=== PATIENT | male | born 1970 | race Caucasian/White ===

== ENCOUNTER 2018-11-03 07:40 | Outpatient (REF) | payer MEDICAID, SELFPAY ==
[2018-11-03 14:16] LABS: Cholesterol 167 mg/dL (50-200); HDL Cholesterol 46 mg/dL (40-60); LDL CHOLESTEROL 94 mg/dL (<100); Triglyceride 224 mg/dL (30-150)
== END 2018-11-03 08:00 ==
LOC: NCHCN 07:40
PROVIDERS: PCP Nurse Practitioner; Visit Provider Nurse Practitioner
DX: E11.9 Type 2 diabetes mellitus without complications (principal); I10 Essential (primary) hypertension; E66.9 Obesity, unspecified
CPT/HCPCS: 80061; 83721

== ENCOUNTER 2019-04-16 09:02 | Outpatient (REF) | payer MEDICAID, SELFPAY ==
[2019-04-16 20:22] LABS: ALT 96 U/L (12-78); AST 34 U/L (15-37); Alkaline Phosphatase 94 U/L (46-116); Anion Gap 12.3 mmol/L (3-11); BUN 18 mg/dL (7-18); Bilirubin, Total 0.5 mg/dL (0.2-1.0); CO2 24.7 mmol/L (21.0-32.0); CREATININE 0.84 mg/dL (0.70-1.30); Chloride 102 mmol/L (98-107); Cholesterol 160 mg/dL (50-200); Glucose 153 mg/dL (70-100); HDL Cholesterol 40 mg/dL (40-60); LDL CHOLESTEROL 88 mg/dL (<100); Potassium 4.2 mmol/L (3.5-5.1); Sodium 139 mmol/L (136-145); Total Protein 7.2 g/dL (6.4-8.2); Triglyceride 188 mg/dL (30-150)
[2019-04-16 20:25] LABS: COMMENT (LAB VIEW ONLY) 88.44 mg/dL; Microalb ug/mg Crea 3.5 ug/mg Cr
== END 2019-04-16 09:22 ==
LOC: NCHCN 09:02
PROVIDERS: PCP Nurse Practitioner; Visit Provider Nurse Practitioner
DX: E11.9 Type 2 diabetes mellitus without complications (principal); I10 Essential (primary) hypertension
CPT/HCPCS: 80053; 80061; 83721; 82043; 82570

== ENCOUNTER 2020-05-19 09:08 | Outpatient (REF) | payer MEDICAID, SELFPAY ==
[2020-05-19 19:15] LABS: ALT 90 U/L (16-63); AST 27 U/L (15-37); Albumin 4.2 g/dL (3.4-5.0); Alkaline Phosphatase 111 U/L (46-116); Anion Gap 10.8 mmol/L (3-11); BUN 15 mg/dL (7-18); Bilirubin, Total 0.4 mg/dL (0.2-1.0); CO2 25.2 mmol/L (21.0-32.0); CREATININE 0.81 mg/dL (0.70-1.30); Calcium 9.1 mg/dL (8.5-10.1); Calculated LDL 101 mg/dL (<100); Chloride 106 mmol/L (98-107); Cholesterol 176 mg/dL (<200); HDL Cholesterol 52 mg/dL (40-60); Sodium 142 mmol/L (136-145); Total Protein 7.2 g/dL (6.4-8.2); Triglyceride 115 mg/dL (<150)
[2020-05-19 19:20] LABS: Glucose 204 mg/dL (74-106)
== END 2020-05-19 09:28 ==
LOC: NCHCN 09:08
PROVIDERS: PCP Nurse Practitioner; Visit Provider Nurse Practitioner
DX: E11.9 Type 2 diabetes mellitus without complications (principal); I10 Essential (primary) hypertension
CPT/HCPCS: 80053; 80061

== ENCOUNTER 2020-08-17 08:55 | Outpatient (REF) | payer MEDICAID, SELFPAY ==
[2020-08-17 20:08] LABS: ALT 87 U/L (16-63); AST 31 U/L (15-37); Albumin 4.3 g/dL (3.4-5.0); Alkaline Phosphatase 90 U/L (46-116); Bilirubin, Total 0.7 mg/dL (0.2-1.0); Total Protein 7.3 g/dL (6.4-8.2)
[2020-08-17 20:40] LABS: Bilirubin, Direct 0.18 mg/dL (0.00-0.20)
[2020-08-17 21:36] LABS: COMMENT (LAB VIEW ONLY) 51.36 mg/dL; Microalb ug/mg Crea 10.5 ug/mg Cr
[2020-08-19 12:25] LABS: Hepatitis C Ab w Rflx HCV PCR Negative (Negative)
== END 2020-08-17 09:15 ==
LOC: NCHCN 08:55
PROVIDERS: PCP Nurse Practitioner; Visit Provider Nurse Practitioner
DX: E11.9 Type 2 diabetes mellitus without complications (principal); R79.89 Other specified abnormal findings of blood chemistry; Z11.59 Encounter for screening for other viral diseases
CPT/HCPCS: 80076; 86803; 82043; 82570

== ENCOUNTER 2021-08-31 18:56 | Outpatient (REF) | payer MEDICAID, SELFPAY ==
[2021-08-31 16:17] LABS: ALT 118 U/L (16-63); AST 41 U/L (15-37); Albumin 4.4 g/dL (3.4-5.0); Alkaline Phosphatase 102 U/L (46-116); Anion Gap 9.7 mmol/L (3-11); BUN 17 mg/dL (7-18); Bilirubin, Total 0.6 mg/dL (0.2-1.0); CO2 25.3 mmol/L (21.0-32.0); CREATININE 0.9 mg/dL (0.70-1.30); Calcium 9.3 mg/dL (8.5-10.1); Calculated LDL 111 mg/dL (<100); Chloride 103 mmol/L (98-107); Cholesterol 197 mg/dL (<200); Glucose 204 mg/dL (74-106); HDL Cholesterol 49 mg/dL (40-60); Potassium 4.5 mmol/L (3.5-5.1); Sodium 138 mmol/L (136-145); Total Protein 7.6 g/dL (6.4-8.2); Triglyceride 186 mg/dL (<150)
== END 2021-08-31 18:57 | disposition home or self-care (01) ==
LOC: LBN 18:56
PROVIDERS: PCP Nurse Practitioner; Visit Provider Nurse Practitioner
DX: E11.9 Type 2 diabetes mellitus without complications (principal); R79.89 Other specified abnormal findings of blood chemistry; I10 Essential (primary) hypertension
CPT/HCPCS: 80053; 80061

== ENCOUNTER 2021-10-05 08:11 | Outpatient (REF) | payer MEDICAID, SELFPAY ==
[2021-10-06 02:11] LABS: COMMENT (LAB VIEW ONLY) 21.53 mg/dL; Microalb ug/mg Crea 12.5 ug/mg Cr
== END 2021-10-05 08:12 | disposition home or self-care (01) ==
LOC: NCHCN 08:11
PROVIDERS: PCP Nurse Practitioner; Visit Provider Nurse Practitioner
DX: E11.9 Type 2 diabetes mellitus without complications (principal)
CPT/HCPCS: 82043; 82570

== ENCOUNTER 2022-03-20 16:23 | Outpatient (REF) | payer MEDICAID, SELFPAY ==
[2022-03-20 18:16] LABS: Abs Immature Grans 0.04 10^3/uL (0.0-0.06); Absolute Basophil Count 0.04 10^3/uL (0.0-0.2); Absolute Eosinophil Count 0.17 10^3/uL (0.0-0.7); Absolute Monocyte Count 0.59 10^3/uL (0.1-0.8); Absolute Neutrophil Count 3.47 10^3/uL (1.2-6.7); Basophils % 0.7; Eosinophils % 2.8; HCT 49.6 % (40.0-50.0); HGB 16.6 g/dL (13.5-17.5); Immature Grans % 0.7; Lymphocytes % 28.3; MCH 28.7 pg (27.0-33.0); MCHC 33.5 % (32.0-36.0); MCV 85.7 fL (80-95); MPV 10.7 fL (8.0-11.0); Monocytes % 9.8; Neutrophils % 57.7; Platelet Count 170 10^3/uL (130-400); RBC 5.79 10^6/uL (4.36-5.78); RDW 13.1 % (11.8-14.1); WBC 6.01 10^3/uL (4.4-10.8)
[2022-03-20 18:34] LABS: ALT 117 U/L (16-63); AST 62 U/L (15-37); Albumin 4.3 g/dL (3.4-5.0); Alkaline Phosphatase 107 U/L (46-116); Anion Gap 10.5 mmol/L (3-11); BUN 17 mg/dL (7-18); Bilirubin, Total 0.6 mg/dL (0.2-1.0); CO2 23.5 mmol/L (21.0-32.0); CREATININE 0.4 mg/dL (0.70-1.30); Calcium 9.1 mg/dL (8.5-10.1); Chloride 103 mmol/L (98-107); Glucose 143 mg/dL (74-106); Potassium 5.6 mmol/L (3.5-5.1); Sodium 137 mmol/L (136-145); TSH 1.89 uIU/mL (0.36-3.74); Total Protein 7.8 g/dL (6.4-8.2)
[2022-03-20 19:05] LABS: Hemoglobin A1C 9.3 % (<5.7)
== END 2022-03-20 16:24 | disposition home or self-care (01) ==
LOC: NCHCN 16:23
PROVIDERS: PCP Nurse Practitioner; Visit Provider Nurse Practitioner Family
DX: E11.9 Type 2 diabetes mellitus without complications (principal); R79.89 Other specified abnormal findings of blood chemistry; I10 Essential (primary) hypertension; G47.33 Obstructive sleep apnea (adult) (pediatric)
CPT/HCPCS: 80053; 83036; 84443; 85025

== ENCOUNTER 2022-09-12 07:58 | Outpatient (REF) | payer MEDICAID, SELFPAY ==
--- OUTSIDE RECORDS SUMMARY | 2022-09-12 07:59 | XMS_ITS | Continuity of Care Document ---
:1970 Author Organization [facility] Address [address] [place] [address] Problems Condition ICD9 code ICD10 code SNOMED code Start Date End Date Status Encounter for screening Z13.228 for other metabolic disorders Results Test Value / Unit Interpretation Reference Range Comp. Metabolic Panel (14)[[id number]]?Collected: 08/20/2022 07:00 AM?Specimen Received: 05:00 AM? Glucose [745265] 114 mg/dL H 65-99 mg/dL Effective August 20, 2022 Glucose r eference interval will be changing to: 70 - 99 BUN [691030] 17 mg/dL Normal 6-24 mg/dL Creatinine [377239] 0.76 mg/dL Normal 0.76-1.27 mg /dL eGFR [556157] 109 mL/min/1.73 Normal >59 mL/min/1.73 BUN/Creatinine Ratio [804738] 22 H 9- 20 Sodium [219069] 139 mmol/L Normal 134-144 mmol/L Potassium [958398] 4.2 mmol/L Normal 3.5-5.2 mmol/ L Chloride [499217] 105 mmol/L Normal 96-106 mmol/L Carbon Dioxide, Total [187990] 21 mmol/L Normal 2 0-29 mmol/L Calcium [686605] 9.2 mg/dL Normal 8.7-10.2 mg/dL Protein, Total [375833] 6.9 g/dL Normal 6.0-8.5 g/dL Albumin [163849] 4.5 g/dL Normal 3.8-4.9 g/dL Globulin, Total [091499] 2.4 g/dL Normal 1.5-4.5 g/dL A/G Ratio [172734] 1.9 Normal 1.2-2.2 Bilirubin, Total [068441] 0.4 mg/dL Normal 0.0-1. 2 mg/dL Alkaline Phosphatase [273223] 99 IU/L Normal 44 -121 IU/L AST (SGOT) [235019] 20 IU/L Normal 0-40 IU/L ALT (SGPT) [945736] 34 IU/L Normal 0-44 IU/L Lipid Panel[[id number]]?Collected: 08/20/2022 07:00 AM?Specimen Received: 08/20/2022 05:00 AM? Cholesterol, Total [536056] 182 mg/dL Normal 100- 199 mg/dL Triglycerides [476413] 162 mg/dL H 0-149 mg/ dL HDL Cholesterol [739513] 49 mg/dL Normal >39 mg/ dL VLDL Cholesterol Jeffery [870788] 28 mg/dL Normal 5- 40 mg/dL LDL Chol Calc (NIH) [938070] 105 mg/dL H 0-9 9 mg/dL Albumin/Creatinine Ratio,Urine[730549]?Collected: 08/20/2022 07:00 AM?Specimen Received: 05:00 AM? Creatinine, Urine [189938] 108.8 mg/dL Normal Not E stab. mg/dL Albumin, Urine [336068] 3.0 ug/mL Normal Not Esta b. ug/mL Alb/Creat Ratio [028641] 3 mg/g creat Normal 0-29 mg /g creat Normal: 0 - 29 Moderately increased: 30 - 300 Severely increased: >300 Hemoglobin A1c[786060]?Collecte d: 08/20/2022 07:00 AM?Specimen Received: 08/20/2022 05:00 AM? Hemoglobin A1c [604766] 5.9 % H 4.8-5.6 % . Prediabetes: 5.7 - 6.4 Diabetes: >6.4 Glycemic control for adults with diabetes: 7.0 Please note[[id number]]?Collected: 08/20/2022 07:00 AM?Specimen Received: 08/20/2022 05:00 AM? Please note [[id number]] Normal The date and/or time of collection was n ot indicated on therequisition as required by state and federal law. The date ofreceip t of the specimen was used as the collection date if notsupplied. Allergies, adverse reactions, alerts No known allergies and adverse reactions Medications No administered medications reported Vital Signs No vital signs reported Social History No smoking Hx information available
[2022-09-12 14:58] LABS: Abs Immature Grans 0.02 10^3/uL (0.0-0.06); Absolute Basophil Count 0.03 10^3/uL (0.0-0.2); Absolute Eosinophil Count 0.16 10^3/uL (0.0-0.7); Absolute Lymphocyte Count 2.04 10^3/uL (1.2-3.4); Absolute Neutrophil Count 3.37 10^3/uL (1.2-6.7); Basophils % 0.5; Eosinophils % 2.6; HCT 49.4 % (40.0-50.0); Immature Grans % 0.3; Lymphocytes % 33.3; MCH 27.3 pg (27.0-33.0); MCHC 32.4 % (32.0-36.0); MCV 84 fL (80-95); MPV 10.3 fL (8.0-11.0); Monocytes % 8.2; Neutrophils % 55.1; Platelet Count 186 10^3/uL (130-400); RBC 5.86 10^6/uL (4.36-5.78); RDW 13.3 % (11.8-14.1); RDW-SD 41.4 fL; WBC 6.12 10^3/uL (4.4-10.8)
[2022-09-12 15:47] LABS: ALT 50 U/L (16-63); AST 22 U/L (15-37); Alkaline Phosphatase 104 U/L (46-116); BUN 18 mg/dL (7-18); Bilirubin, Total 0.4 mg/dL (0.2-1.0); CREATININE 0.7 mg/dL (0.70-1.30); Calculated LDL 116 mg/dL (<100); Chloride 104 mmol/L (98-107); Cholesterol 185 mg/dL (<200); Estimated GFR 111.56 (mL/min/1.73m2); Glucose 136 mg/dL (74-106); HDL Cholesterol 55 mg/dL (40-60); Potassium 4.5 mmol/L (3.5-5.1); Sodium 139 mmol/L (136-145); Total Protein 7.8 g/dL (6.4-8.2); Triglyceride 74 mg/dL (<150)
== END 2022-09-12 07:59 | disposition home or self-care (01) ==
LOC: NCHCN 07:58
PROVIDERS: PCP Nurse Practitioner; Visit Provider Nurse Practitioner Family
DX: I10 Essential (primary) hypertension (principal); E11.9 Type 2 diabetes mellitus without complications
CPT/HCPCS: 80053; 80061; 85025

== ENCOUNTER 2022-09-18 08:13 | Outpatient (REF) | payer MEDICAID, SELFPAY ==
[2022-09-18 19:05] LABS: COMMENT (LAB VIEW ONLY) 123.46 mg/dL
== END 2022-09-18 08:14 | disposition home or self-care (01) ==
LOC: NCHCN 08:13
PROVIDERS: PCP Nurse Practitioner; Visit Provider Nurse Practitioner Family
DX: E11.9 Type 2 diabetes mellitus without complications (principal)
CPT/HCPCS: 82043; 82570

== ENCOUNTER 2023-02-15 01:59 | Outpatient (CLI) | payer MEDICAID, SELFPAY ==
[2023-02-15 12:48] LABS: Anion Gap 7.8 mmol/L (3-11); BUN 17 mg/dL (7-18); CO2 27.2 mmol/L (21.0-32.0); CREATININE 0.8 mg/dL (0.70-1.30); Calcium 8.9 mg/dL (8.5-10.1); Chloride 107 mmol/L (98-107); Estimated GFR 107.15 (mL/min/1.73m2); Glucose 169 mg/dL (74-106); Sodium 142 mmol/L (136-145)
[2023-02-15 15:08] LABS: Calculated LDL 108 mg/dL (<100); Cholesterol 178 mg/dL (<200); HDL Cholesterol 58 mg/dL (40-60); Triglyceride 60 mg/dL (<150)
[2023-02-15 23:07] LABS: PSA, Screening 0.4 ng/mL (<=3.5)
== END 2023-02-15 02:00 | disposition home or self-care (01) ==
LOC: LOS 02:00
PROVIDERS: PCP Nurse Practitioner Family; Visit Provider Nurse Practitioner Family
DX: E78.5 Hyperlipidemia, unspecified (principal); Z12.5 Encounter for screening for malignant neoplasm of prostate; R73.03 Prediabetes; I10 Essential (primary) hypertension
CPT/HCPCS: 36415; 80048; 80061; 84153

== ENCOUNTER 2023-03-01 02:09 | Outpatient (CLI) | payer MEDICAID, SELFPAY ==
[2023-03-01 12:44] LABS: Hemoglobin A1C 6.4 % (<5.7)
== END 2023-03-01 02:10 | disposition home or self-care (01) ==
LOC: LOS 02:12
PROVIDERS: PCP Nurse Practitioner Family; Visit Provider Nurse Practitioner Family
DX: R73.03 Prediabetes (principal)
CPT/HCPCS: 36415; 83036

== ENCOUNTER 2023-10-10 10:26 | Day surgery (SDC) | payer MEDICAID, SELFPAY ==
--- NOTE | 2023-10-09 14:24 | W.PM.DSUDISC ---
Date of service: 10/10/23 Time of Service: 13:20 Discharge Plan Disposition Patient Disposition: Home Condition: Good Discharge Details Reason For Visit: Screening colonoscopy Attending Provider: Claude Burrows Primary Care Provider: Susan Salguero Home Meds and New Rx's Prescriptions: Discontinued bisacodyl [Dulcolax (bisacodyl)] 5 mg tablet,delayed release (DR/EC) 5 mg PO ONCE Qty: 4 0RF Rx Instructions: Take per colonoscopy instructions provided by ordering providers office polyethylene glycol 3350 17 gram/dose powder 17 g PO ONCE Qty: 238 0RF Rx Instructions: Take per colonoscopy instructions provided by ordering providers office Discharge Instructions Instructions: Colorectal Polyps (GEN) Additional Instructions: JulioC ésar, we were able to complete your colonoscopy today without any difficulty. I did find a total of 4 polyps. All were quite small, and I removed them all completely. Once I have the results of the polyp analysis, I will be in touch with my recommendations for your next colonoscopy. 1. If tolerated, consume a soft, low fiber diet for 1-2 days. 2[address] Do not drive, drink alcohol, operate machinery, make critical decisions, or do activities that require coordination or balance for 24 hours. 3. Because air was put into your colon during the procedure, expelling air from your rectum (passing gas or farting) is normal. 4. You may not have a bowel movement for 1-3 days because of the colonoscopy prep. This is normal. 5. Go directly to the emergency room if you notice any of the following: Develop chills (warm to touch), or if you have a thermometer and your temperature is above 101 Difficulty breathing or difficultly swallowing Persistent vomiting Severe abdominal pain, other than gas cramps Severe chest pain Black, tarry stools Any bleeding ? exceeding one tablespoon 6. Call your physician if the site where your intravenous was started becomes red, swollen, painful, and warm to touch. 7. Your physician has reviewed your pre-procedure medications. Please continue to take those medications as previously ordered. You will be given specific information/education regarding any changes to your medications before leaving. Activity:: Activity as Tolerated Diet:: As Tolerated Discharge Orders Discharge Orders: Discharge Order (Routine); Ordered 10/09/23 Ordered By: Claude Burrows DS: Diagnosis Discharge Diagnosis (1) Screening for colorectal cancer: Status: Acute Asessment and Plan: Follow-up on polypectomy results
--- NOTE | 2023-10-09 14:25 | W.COLOREPORT ---
Date of service: 10/10/23 Time of Service: 13:25 Colonoscopy Report Date of procedure: 10/10/23 Pre-op diagnosis general: Screening colonoscopy Post-op diagnosis procedure note: other (Colorectal polyps) Procedure: Colonoscopy with polypectomy Surgeon: Claude Burrows Anesthesia Type: General:No Airway Estimated blood loss (mL): 10 Pathology: other (0.25 cm polyp at 80 cm, 0.25 cm polyp at 65 cm x 2, 0.25 cm polyp at 25 cm) Complications: None Disposition: same day Indications: Julio César is a 53-year-old male with a history of adenomatous polyps who needs his next screening colonoscopy Prep: Miralax/Dulcolax Procedure Start Time: 12:50 Procedure End Time: 13:10 Retraction Time: 11 Findings: 0.25 cm polyp at 80 cm, 0.25 cm polyp at 65 cm x 2, 0.25 cm polyp at 25 cm Procedure Description: After the induction of monitored anesthetic care, and with the patient in left lateral decubitus position, I began by performing an external anorectal exam.? Perineum and skin were normal, as was the anal verge.? There was no evidence of external hemorrhoids.? Next, I performed a digital rectal exam.? I did not appreciate any abnormal findings.? Next, I advanced a colonoscope into the rectal vault.? I performed retroflexion.? This was normal.? Using insufflation, I then advanced the colonoscope beyond the rectal folds and into the sigmoid colon before advancing towards the cecum.? The scope was noted to be in the cecum by identification of the ileocecal valve and appendiceal orifice.?Around 80 cm from the anal verge I identified a 0.25 cm sessile cold forcep polypectomy polyp. ?It appeared in character. ?I was able to remove this with a . ?I examined the site, and there was minimal bleeding. ?Once this was completed, I continued to withdraw the scope and examine the remainder of the colonic mucosa. I then began withdrawing the colonoscope using repeated irrigation as necessary for full evaluation of the colonic mucosa. Similarly, I found 0.25 cm polyps at 65 cm x 2. These were both sessile, and I removed both of these with cold forceps and no significant bleeding. Finally, I found 1 another 0.25 cm polyp around 25 cm from the anus. I removed this with cold forceps in a similar fashion to all the others. Once the scope was withdrawn to the level of the rectum, great care was taken to examine portions of the rectal folds.? Finally, the scope was withdrawn and the patient was brought to the same-day surgery recovery unit as the anesthetic wore off. ?The findings and instructions were shared with the patient prior to discharge. Clinton Bowel Prep Clinton Bowel Prep Right Colon: 3 Left Colon: 3 Transverse Colon: 3 Total Score: 9
[2023-10-10 11:39] VITALS: BP 140/81; PULSE 75; RESP 16; TEMP 36.8; O2SAT 97
[2023-10-10] MEDS: Lactated Ringers 1,000 ML 80 ML IV (12:03)
--- NOTE | 2023-10-10 12:38 | W.ANESPRE ---
General Info Date of Service Date Performed: 10/10/23 Height: 5 ft 7 in Weight: 150.6 kg Body Mass Index (BMI): 52.0 Surgical Procedure: Operation Date: 10/10/23 12:05 Proposed Procedure Side Surgeon p Melo Burrows MD Meds Allergies and Home Medications Allergies Allergy/AdvReac Type Severity Reaction Status Date / Time naproxen AdvReac Intermediate blood in Verified 10/10/23 11:45 stool Current Visit Medications: Current Medications Generic Name Dose Route Start Last Admin Trade Name Freq PRN Reason Stop Dose Admin Hyoscyamine Sulfate 0.125 mg 10/09/23 14:26 Hyoscyamine 0.125 Mg Sl/Oral/Chew SL 11/08/23 14:25 DIRECTED PRN Ringer's Solution 1,000 mls @ 80 mls/hr 10/10/23 06:00 10/10/23 12:03 IV 10/24/23 23:59 80 mls/hr INFUSION MIHAELA Administration IV Miscellaneous Supplies 1 each 10/10/23 06:00 Iv Access IV 10/24/23 23:59 DIRECTED MIHAELA Ondansetron HCl 4 mg 10/09/23 14:26 Ondansetron 4 Mg/2 Ml Vial IVP 11/08/23 14:25 Q4H PRN PRN Nausea / Vomiting Sodium Chloride 0 ml 10/10/23 06:00 Normal Saline Flush 10 Ml Syr IV 10/24/23 23:59 PRN PRN Sodium Chloride 0 ml 10/10/23 06:00 Normal Saline 10 Ml Vial IJ 10/24/23 23:59 DIRECTED PRN Sterile Water 0 ml 10/10/23 06:00 Water,Injection,Sterile 10 Ml Vial IJ 10/24/23 23:59 DIRECTED PRN PFSH Active Problems Active Problems: Problem Status Onset Code Screening for colorectal cancer Z12.11, Z12.12 Hx of adenomatous colonic polyps Z86.010 Morbid obesity with BMI of 50.0-59.9, adult E66.01, Z68.43 Prediabetes R73.03 Hyperlipidemia E78.5 CARIN (obstructive sleep apnea) G47.33 Insomnia G47.00 Onychomycosis B35.1 Medical History Medical History Alcohol abuse, in remission Erectile disorder Peripheral neuropathy History of tobacco use Type 2 diabetes mellitus with diabetic neuropathy Hypertension Depression Tobacco Smoking/Tobacco Use Status: Former Tobacco Use Passive smoking exposure: Yes Second hand exposure: Yes Alcohol Alcohol Intake: former Year quit: 2020 Substance Use Substance use: Never Substance use type: former substance user Vital Signs and Lab Results Vital Signs Most Recent Vital Signs in EMR: Most Recent Vital Signs Temp Pulse Resp BP Pulse Ox 36.8 C 75 16 140/81 97 10/10/23 11:39 10/10/23 11:39 10/10/23 11:39 10/10/23 11:39 10/10/23 11:39 Point of Care Results Point of Care Results: Finger Stick Blood Glucose 122 10/10/23 11:35 Lab Results Blood Type / Crossmatch: No Data to Display Complete Blood Count: No Data to Display Complete Metabolic Panel: No Data to Display Liver Function Panel: No Data to Display Coagulation Panel: No Data to Display Cardiac Panel: No Data to Display Arterial Blood Gas: No Data to Display Venous Blood Gas: No Data to Display Pancreas Panel: No Data to Display Thyroid Panel: No Data to Display Infectious Disease: No Data to Display Blood Cultures: No Data to Display Toxicology Panel: No Data to Display Anesthesia Assessment and Plan Anesthesia History Personal History: No History of Anesthesia Complications Family History: No Family History of Anesthesia Complications Exercise Tolerance Exercise Tolerance: Metabolic Equivalents>4 Pertinent Negatives Pertinent Negatives: No Symptoms of GERD, No Major Cardiovascular Symptoms or Complaints and No Major Pulmonary Symptoms or Complaints Cardiac & Pulmonary Exam Cardiac Exam: Normal S1/S2 Heart Sounds Pulmonary Exam: Clear Bilateral Breath Sounds Implantable Cardiac Device Does patient have a Pacemaker or an ICD?: No Airway Exam Known Difficult Airway: No Mallampati Class: 2 Mouth Opening: Normal (> 3cm) Thyromental Distance: Greater than 3 cm Neck Range of Motion: Full ROM Neck Circumference: Thick Teeth Condition: Normal Dentition ASA Classification ASA Score: ASA 3 Emergency Case?: No NPO Status NPO Status: NPO Clears >2 hours, Solids >8 hours Anesthesia Plan Resuscitation Status: Full Code Anesthesia Technique: General Anesthesia Airway Planned: Natural Airway Monitors Used: Standard Monitors
[2023-10-10 12:39] VITALS: BMI 52.0
--- NOTE | 2023-10-10 13:00 | BOWEL_PTH ---
PATIENT: Julio César Kaiser LOC: [facility] U#:[id number] AGE/SX: 53/M ROOM: RE10/10/[address]: Claude Burrows MD : 1970 BED: DIS: 10/10/2023 SPEC #: [id number] RECD: 10/11/23 10:47 STATUS: KEEGAN REQ #: [id number] APOORVA: 10/10/23 13:[address]: Claude Burrows DEPT: Surgical Specimen RECD BY: Cely Yao ENTERED: 10/11/23 10:48 SP TYPE: Bowel OTHR DR: Susan Salguero, MALLY Tissues: 1 - BIOPSY BOWEL 2 - BIOPSY BOWEL 3 - BIOPSY BOWEL 4 - BIOPSY BOWEL Procedures: GROSS AND MICRO LEVEL 4 Comments: [id number]
[2023-10-10 13:50] VITALS: BP 137/71; PULSE 80; RESP 16; TEMP 36.6; O2SAT 97
--- NOTE | 2023-10-10 13:56 | W.ANESPOSTOP ---
Postoperative Evaluation Date, Time and Location Date Performed: 10/10/23 Time Performed: 13:35 Patient Location: Day Surgery Unit Vital Signs Most Recent Imported Vital Signs: Most Recent Vital Signs Temp Pulse Resp BP Pulse Ox 36.6 C 80 16 137/71 97 10/10/23 13:50 10/10/23 13:50 10/10/23 13:50 10/10/23 13:50 10/10/23 13:50 Assessment Mental Status: Awake (Alert & Oriented to Patient Baseline) Airway and Respiratory Function: Patent airway with normal (patient baseline) respiratory exam Cardiovascular Function: Hemodynamically Stable Hydration Status: Adequately Hydrated Nausea & Vomiting: No Nausea or Vomiting Pain: Pt. Denies Any Pain Peripheral Nerve Block: Patient did not receive a nerve block
[2023-10-10 14:11] VITALS: BP 135/103; PULSE 93; RESP 18; TEMP 36.6; O2SAT 96
== END 2023-10-10 14:00 | disposition home or self-care (01) ==
LOC: SUR 10:26
PROVIDERS: PCP Nurse Practitioner Family; Visit Provider Surgery
PROC: 0DJD8ZZ Inspection of Lower Intestinal Tract, Via Natural or Artificial Opening Endoscopic (ICD-10-PCS; CPT 45378; principal; 2023-10-10 12:00)
DX: Z12.11 Encounter for screening for malignant neoplasm of colon (principal); D12.4 Benign neoplasm of descending colon; Z86.010 Personal history of colon polyps; E66.01 Morbid (severe) obesity due to excess calories; Z68.43 Body mass index [BMI] 50.0-59.9, adult; R73.03 Prediabetes
CPT/HCPCS: 45380; 88305; J2250

== ENCOUNTER 2024-03-05 05:29 | Outpatient (CLI) | payer MEDICAID, SELFPAY ==
[2024-03-05 12:34] LABS: Anion Gap 9.8 mmol/L (3-11); BUN 16 mg/dL (7-18); CO2 26.2 mmol/L (21.0-32.0); CREATININE 0.8 mg/dL (0.70-1.30); Calculated LDL 98 mg/dL (<100); Chloride 107 mmol/L (98-107); Cholesterol 159 mg/dL (<200); Estimated GFR 106.48 (mL/min/1.73m2); Glucose 130 mg/dL (74-106); HDL Cholesterol 47 mg/dL (40-60); Potassium 4.1 mmol/L (3.5-5.1); Sodium 143 mmol/L (136-145); Triglyceride 70 mg/dL (<150)
[2024-03-05 12:42] LABS: Hemoglobin A1C 6.9 % (<5.7)
== END 2024-03-05 05:30 | disposition home or self-care (01) ==
LOC: LOS 05:29
PROVIDERS: PCP Nurse Practitioner Family; Visit Provider Nurse Practitioner Family
DX: Z00.00 Encounter for general adult medical examination without abnormal findings (principal); E11.40 Type 2 diabetes mellitus with diabetic neuropathy, unspecified
CPT/HCPCS: 36415; 80048; 80061; 83036

== ENCOUNTER 2024-06-08 18:03 | Outpatient (REF) | payer MEDICAID, SELFPAY ==
[2024-06-08 12:44] LABS: Microalb ug/mg Crea 4.4 ug/mg Cr
== END 2024-06-08 18:04 | disposition home or self-care (01) ==
LOC: LBN 18:03
PROVIDERS: PCP Nurse Practitioner Family; Visit Provider Nurse Practitioner Family
DX: E11.9 Type 2 diabetes mellitus without complications (principal)
CPT/HCPCS: 82043; 82570

== ENCOUNTER → 2024-06-10 01:52 | Outpatient (CLI) | payer MEDICAID, SELFPAY ==
--- NOTE | 2024-06-10 10:13 | DI.RAD_ITS ---
Exam(s) XR SHOULDER LT COMPLETE 2+V EXAM: XR SHOULDER LT COMPLETE 2+V CLINICAL HISTORY: left shoulder pain,m25.512. TECHNIQUE: 2D digital imaging was performed. COMPARISON: No exams were available for comparison FINDINGS: Five views. No evidence of fracture nor dislocation or abnormal soft tissue calcifications. The subacromial spac e is not diminished. There are some degenerative changes in the glenohumeral joint. There are multiple degenerative subar ticular cysts in the osseous glenoid. There is also a subarticular cyst measuring 9 x 8 mm in the hu meral head. There is a small osteophyte on the inferior articular surface of the humeral head also n oted. There also a few degenerative subarticular cysts in the region of the greater tuberosity. Mil d degenerative changes in the AC joint. Clavicle otherwise unremarkable. No other scapular findings . IMPRESSION: Degenerative changes in the glenohumeral joint, as described above. DATA REPOSITORY: RADIATION DOSE DELIVERED:
== END ==
PROVIDERS: PCP Nurse Practitioner Family; Visit Provider Nurse Practitioner Family
DX: M25.512 Pain in left shoulder (principal); M19.012 Primary osteoarthritis, left shoulder
CPT/HCPCS: 73030

== ENCOUNTER 2024-07-09 05:09 | Outpatient (CLI) | payer MEDICAID, SELFPAY ==
[2024-07-09 12:49] LABS: Abs Immature Grans 0.02 10^3/uL (0.0-0.06); Absolute Basophil Count 0.03 10^3/uL (0.0-0.2); Absolute Eosinophil Count 0.15 10^3/uL (0.0-0.7); Absolute Lymphocyte Count 1.82 10^3/uL (1.2-3.4); Absolute Monocyte Count 0.42 10^3/uL (0.1-0.8); Absolute Neutrophil Count 3.02 10^3/uL (1.2-6.7); Basophils % 0.5 %; Eosinophils % 2.7 %; HCT 46.4 % (40.0-50.0); HGB 15.2 g/dL (13.5-17.5); Immature Grans % 0.4 %; Lymphocytes % 33.3 %; MCH 26.8 pg (27.0-33.0); MCHC 32.8 % (32.0-36.0); MCV 82 fL (80-95); MPV 9.4 fL (8.0-11.0); Monocytes % 7.7 %; Neutrophils % 55.4 %; Platelet Count 183 10^3/uL (130-400); RBC 5.67 10^6/uL (4.36-5.78); RDW 14.6 % (11.8-14.1); RDW-SD 43.7 fL; WBC 5.46 10^3/uL (4.4-10.8)
[2024-07-09 19:36] LABS: Ferritin 117 ng/mL (26-388); TSH (W/Ref FT4) 1.91 uIU/mL (0.36-3.74)
== END 2024-07-09 05:10 | disposition home or self-care (01) ==
LOC: LOS 05:10
PROVIDERS: PCP Nurse Practitioner Family; Visit Provider Nurse Practitioner Family
DX: G47.00 Insomnia, unspecified (principal)
CPT/HCPCS: 36415; 82728; 84443; 85025

== ENCOUNTER 2024-08-13 03:11 | Outpatient (CLI) | payer MEDICAID, SELFPAY ==
[2024-08-15 08:59] LABS: HIV-1/2 Ag & Ab Screen Negative (Negative)
[2024-08-17 10:49] LABS: HBs Antibody, Quant <3.1 mIU/mL (See Note); Hep B Surface Ab Negative (See Note); Hepatitis B Core Antibody Negative (Negative); Hepatitis B Surface Antigen Negative (Negative)
== END 2024-08-13 03:12 | disposition home or self-care (01) ==
LOC: LBO 03:11
PROVIDERS: PCP Nurse Practitioner Family; Visit Provider Nurse Practitioner Family
DX: Z11.4 Encounter for screening for human immunodeficiency virus [HIV] (principal); E11.40 Type 2 diabetes mellitus with diabetic neuropathy, unspecified; Z11.59 Encounter for screening for other viral diseases
CPT/HCPCS: 36415; 86704; 86706; 87340; 87389; 83036

== ENCOUNTER 2025-02-18 10:07 | Emergency (ER) | payer OTHER, SELFPAY ==
[2025-02-18 10:15] VITALS: BP 192/100; PULSE 108; RESP 24; TEMP 36.9; O2SAT 96
--- NOTE | 2025-02-18 10:15 | DI.RAD_ITS ---
Exam(s) XR ANKLE RT COMPLETE EXAM: XR ANKLE RT COMPLETE CLINICAL HISTORY: Right ankle pain. TECHNIQUE: 2D digital imaging was performed. COMPARISON: No exams were available for comparison FINDINGS: 3 views No evidence of acute fracture nor widening the ankle mortise. There are significant degenerative changes in the tibiotalar joint including joint space narrowing an d degenerative subarticular cysts in the lateral aspect of the joint. There is also a bony excrescen ce off the dorsal aspect of the talar neck. Incidentally noted is a prominent inferior calcaneal spu r. 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 DATA REPOSITORY: RADIATION DOSE DELIVERED:
--- NOTE | 2025-02-18 11:01 | W.ED.GENAD ---
Discharge Plan Disposition Patient Disposition: Home Discharge Details Clinical Impression: Right ankle sprain, Blood pressure elevated without history of HTN Primary Care Provider: Susan Salguero ED Provider: Mario Olmos Home Meds and New Rx's Prescriptions: Continued trazodone 100 mg tablet 100 mg PO QHS Qty: 90 3RF Discharge Instructions Instructions: Ankle Sprain ED Additional Instructions: You are seen in the emergency department for your ankle pain. Your x-ray showed no sign of any fractures. As we discussed you may bear weight on your right lower extremity wearing this ankle brace. Please ice your ankle for 20 minutes on 20 minutes off. You are also found to have an elevated blood pressure. As we discussed please go over to [facility] as they can help connect you with resources to find healthcare that is affordable for you. They are open today and can be reached across our parking lot at: [address], [place] [address]. We are open?Mon. ?Fri., 8 a.m. ? 4:30 p.m.? For more information and to connect with a Community Health Worker, call?[phone]. For your pain please take medications as follows: 1. Take acetaminophen (Tylenol), 1,000 mg (two 500 mg tabs) every 6 hours [2. Take ibuprofen (Advil), 400 mg every 6 hours.] As we discussed with your blood pressure if you develop chest pain headache nausea or vomiting please return to the emergency department. If your ankle pain does not improve over the next several days please return to the emergency department for reassessment. Discharge Data Discharge Date/Time-TO BE ENTERED AT DEPARTURE: 02/18/25 11:20 HPI General Date/Time Provider Initiated Documentation: 02/18/25 10:12. HPI Narrative: MDM This is an overall well-appearing normothermic but initially tachycardic 54-year-old male with right ankle pain but fortunately no acute osseous abnormalities for which she will receive ankle brace weightbearing as tolerated with his crutch and empiric trial of discharge with expectant outpatient management. No pain or proportion to suggest necrotizing soft tissue infection. Right foot warm well-perfused so not concern for critical limb ischemia so do not feel the patient requires an emergent angiogram of his abdomen with runoffs. He has no erythema to suggest cellulitis. No fluctuance to suggest abscess. No erythematous joints nor fevers nor IV drug use to suggest septic joint. No proximal tibial tenderness to suggest Maisonneuve injury. No midfoot instability to suggest Lisfranc injury. No lateral foot tenderness to suggest Salter fracture. Patient and I did speak at length about his elevated blood pressure without a diagnosis of hypertension. He does have a primary care provider. I offered to call over to [employer] as I reported that they could help him obtain insurance which she reportedly lacks at the moment. Patient declined [employer] [facility]. I pass along the phone number for [employer]. I offered acetaminophen and ibuprofen which patient reported that he would take at home. I advised ice return is on tenderness onset the day today. I advised that if his symptoms did not improve or worsened that he should return to the emergency department. I also advised that if he develops a headache chest pain or shortness of breath that he should return to the emergency department. In the absence of headaches chest pain or shortness of breath I was not concerned for endorgan damage so do not feel the patient required lab work or ECGs. HPI This is a 54-year-old male arrived to the emergency department via private vehicle in the setting of right ankle pain. Patient reported that he lost balance while wearing steel toed boots at work yesterday morning. He reportedly caught his right ankle on a small ledge. He fell. He had immediate pain. He has been able to bear weight and he has been using a crutch. He denies any head strike loss of consciousness preceding nausea vomiting or dizziness. He took some naproxen this morning at 5:30 AM. Exam General: Well-appearing in no acute distress speaking in complete sentences. Head: Normocephalic, atraumatic. Eye: Extraocular eye movements intact. No conjunctival injection. No scleral icterus. Ear, nose, mouth, throat: Grossly normal inspection. Normal voice, handling secretions normally. Neck: Trachea midline. Cardiovascular: Well-perfused distal extremities. Respiratory: Nonlabored respiration. Gastrointestinal: Nondistended abdomen. Musculoskeletal: Right lower extremity warm well-perfused. 2+ PT and DP pulses. 5 out of 5 right lower extremity strength dorsi and plantarflexion. Patient does have some right medial and lateral malleoli or tenderness. No erythema. No fluctuance. No midfoot instability. No tibial tenderness. No right lateral foot tenderness. Cap refill less than 2 seconds in the right toes. No ecchymosis no lacerations. No significant effusion. Skin: Normal for age and race, grossly normal temperature and turgor. No acute rash. Neurologic: Alert and appropriate, no apparent acute deficits. Psychiatric: Mood and manner are appropriate. Grooming and personal hygiene are appropriate. Related Data Home Medications ?Medication ?Instructions ?Recorded ?Confirmed trazodone 100 mg tablet 100 mg PO QHS #90 tabs 07/29/24 02/18/25 Previous Rx's ?Medication ?Instructions ?Recorded trazodone 100 mg tablet 100 mg PO QHS #90 tabs 07/29/24 Allergies Allergy/AdvReac Type Severity Reaction Status Date / Time No Known Allergies Allergy Unverified 02/18/25 10:24 General Stated Complaint: Orthopedic BRITTON: 4 Course Vital Signs Vital signs: Vital Signs Temperature 36.9 C 02/18/25 10:15 Pulse 108 H 02/18/25 10:15 Respiratory Rate 24 02/18/25 10:15 Blood Pressure 192/100 H 02/18/25 10:15 Pulse Oximetry 96 02/18/25 10:15 Temperature 36.9 C 02/18/25 10:15 Temperature Source Temporal Artery Scan 02/18/25 10:15 Pulse 108 H 02/18/25 10:15 Respiratory Rate 24 02/18/25 10:15 Blood Pressure 192/100 H 02/18/25 10:15 Blood Pressure Position Sitting 02/18/25 10:15 Pulse Oximetry 96 02/18/25 10:15 Oxygen Delivery Method Room Air 02/18/25 10:15 Oxygen Flow Rate 0 02/18/25 10:15 Pain Level 6 02/18/25 10:22 Medical Decision Making Quality:SDOH Health Related Social Needs: Health related social needs problems related to housing/economic circumstances (Z59.89), problems with daily activities (Z73.9), feeling lonely/isolated (Z60.8) PFSH All Active Problems (Updated 02/18/25 @ 11:23 by Mario Olmos MD) Blood pressure elevated without history of HTN (Acute) Right ankle sprain (Acute) Type 2 diabetes mellitus with diabetic neuropathy (Chronic) CARIN (obstructive sleep apnea) (Chronic) Morbid obesity with BMI of 50.0-59.9, adult (Chronic) Hyperlipidemia (Chronic) Insomnia (Chronic) Onychomycosis (Chronic) Right great toe nail. Medical History (Updated 02/18/25 @ 11:23 by Mario Olmos MD) Tubular adenoma of colon On 2022 colonoscopy Alcohol abuse, in remission Erectile disorder History of tobacco use Doesn't qualify for LDCT Hypertension Depression Surgical History (Updated 02/27/24 @ 07:11 by Susan Salguero NP) History of colonoscopy with polypectomy (10/10/23) Family History Mother Hypertension Father , 62 Lung cancer Suspected to be from agent orange exposure Sister No problems noted. Brother No problems noted. Brother No problems noted. Daughter Substance use disorder Maternal Grandfather No problems noted. Maternal Grandmother No problems noted. Paternal Grandfather No problems noted. Paternal Grandmother No problems noted. Social History (Updated 03/06/24 @ 11:04 by Génesis Seals) Smoking/Tobacco Use Status: Former Tobacco Use tobacco type: cigarettes Quit Date: 11/25/20 Pack-years: 5 Tobacco: How many years used: 10 Quit status: quit date established Second Hand Exposure: Yes Smoking risk assessment performed?: Yes Alcohol Intake: former Year quit: 2021 Previous attempts at quittin Drug use: Current Sobriety Substance use type: former substance user Adopted: No Caregiver/Support person: No Household members: friend(s) Housing: house Number of Children: 1 Communication Needs: None Education Level: high school Do you need help understanding health information?: Rarely Pets and animals: No Sexually active: Yes Do you think of yourself as: straight/heterosexual Current gender identity: male What is your relationship status?: never How often do you talk on the phone with friends or family?: three or more times per week How often do you get together with friends or relatives?: three or more times per week How often do you attend quaker or mosque services?: decline to answer Do you belong to any clubs or organized social groups?: no Panel score (0-1 are the most socially isolated patients): 1 What type of physical activity do you participate in: walking Duration: 15-30 minutes/day Frequency: 3-4 times per week Ebatriz/Druze: No preference Special beatriz needs: No Seatbelt use: always Helmet use: Yes Helmet use: always Drive intox or ride w/intox lyft driver: No Firearms in home: No Do you feel safe at home: Yes Do you feel safe in your relationship?: Yes Victim of physical abuse: No Victim of emotional abuse: No Victim of sexual abuse: No Would you like helpful sources: No
[2025-02-18 11:06] VITALS: BP 186/97; PULSE 70; RESP 18; O2SAT 93
== END 2025-02-18 11:20 | disposition home or self-care (01) ==
PROVIDERS: Emergency Provider Emergency Medicine; PCP Nurse Practitioner Family
DX: S93.401A Sprain of unspecified ligament of right ankle, initial encounter (principal); E11.40 Type 2 diabetes mellitus with diabetic neuropathy, unspecified; R03.0 Elevated blood-pressure reading, without diagnosis of hypertension; E78.5 Hyperlipidemia, unspecified; Z87.891 Personal history of nicotine dependence; X50.1XXA Overexertion from prolonged static or awkward postures, initial encounter; Y93.01 Activity, walking, marching and hiking; Y92.89 Other specified places as the place of occurrence of the external cause; Y99.0 Civilian activity done for income or pay
CPT/HCPCS: 99283; 73610